=== PATIENT | female | born 1945 | race Caucasian/White ===

== ENCOUNTER → 2017-02-18 | Day surgery (SDC) | payer OTHER ==
[~2017-02-18] MED LIST: ALBUTEROL17 GM INH; ALLEGRA-D1 TAB.SR1 PO; ALLEGRA-D1 TAB.SR3 PO; ALLERGY SHOTS; AMBIEN PO; AMBIEN10 MG PO; ANTIVERT12.5 MG PO; ASPIRIN81 M1 PO; BACLOFEN10 MG PO; BACTRIM DS TABL1 TA1 PO; BACTROBAN22 GM TP; CELEBREX; DYMISTA NASAL S23 GM NS; EFFEXOR75 M1 PO; EFFEXOR75 M3 PO; EXCEDRIN EXTRA1 EAC1 PO; EXCEDRIN MIGRAI1 TA1 PO; KEPPRA250 MG PO; KEPPRA500 M2 PO; KEPPRA500 MG PO; LAMICTAL PO; LAMICTAL150 MG PO; LEVOTHYROXINE88 MCG PO; LINZESS290 MCG PO; METHOCARBAMOL500 MG PO; MIRALAX17 G1 PO; MIRALAX255 GM PO; MOBIC15 MG PO; MONTELUKAST SOD10 MG PO; MUCAPHED TABLE1 EACH PO; MUCINEX DM1 TAB.SR . PO; MULTI VITAMIN1 EACH PO; MYCOLOG II CREA15 GM TOP; NASONEX17 GM; NEURONTIN300 MG PO; NITROFURANTOIN100 M3 PO; NORCO 10/325 TA1 TAB; ONDANSETRON ODT4 MG PO; OXYCODONE-ACET1 EAC1 PO; PEPTO BISMOL; PEPTO-BISMOL262 M1 PO; PERCOCET10 PO; PRILOSEC PO; PROAIR HFA8.5 GM IN; PYRIDIUM100 MG PO; ROBAXIN PO; SOMA250 MG PO; SYMBICORT 16010.2 GM IN; SYMBICORT 16010.2 GM INH; SYNTHROID; SYNTHROID PO; SYNTHROID88 MCG PO; TOPAMAX50 MG PO; VESICARE; VITAMIN D1000 UNI1 PO; VOLTAREN50 MG PO; XENICAL120 MG PO; ZOLOFT; ZOLPIDEM TARTRAT5 M1 PO; [UNRECOGNIZED DRUG - OTHER] PO
--- NOTE | ~2017-02-18 | OR ---
Unit #: [id number] #: [id number] Patient: YVROSE LIANG [id number] [address] [address] [id number] O MR#: [id number] NAME: YVROSE LIANG. ROOM: Date of Procedure: Admission Date: 02/18/2017 Surgeon: Flavio Ribera M.D. : 1945 Attending Physician: Flavio Ribera M.D. Primary Care Physician: Frankie Coleman PROCEDURE OPERATIVE NOTE PREOPERATIVE DIAGNOSIS Back pain, radiculopathy, degenerative disc disease, lumbar spinal stenosis. POSTOPERATIVE DIAGNOSIS Back pain, radiculopathy, degenerative disc disease, lumbar spinal stenosis PROCEDURE PERFORMED Lumbar epidural steroid injection with fluoroscopic guidance for needle localization. HISTORY This is a 71-year-old female with the previously mentioned diagnosis. Pathology was most severe at the L4-5 level. She was treated with p.r.n. epidural steroid injections, getting three to five months of improvement generally. She is a poor surgical candidate. PROCEDURE The patient was placed in a seated position. Standard monitors were applied. A sterile prep and drape of the lumbar area was performed. The skin then at the right of the midline at the L4-5 level was localized with 1% lidocaine. An 18-gauge HexAirbottead needle was then advanced via loss of resistance technique and fluoroscopic guidance in toward the epidural space. After confirming proper needle positioning with fluoroscopy and radiographic contrast, 80 mg of Depo-Medrol and 4 mL of preservative free normal saline were deposited. The patient tolerated the procedure otherwise well and was discharged to the recovery room in stable condition. Dictated by... Milan Drummond/lou TD: 02/18/2017 12:40 JOB #: [id number] Unit #: [id number] #: [id number] Patient: YVROSE LIANG PROCEDURE OPERATIVE NOTE Page 1 of 1 X Flavio Ribera MD X PROCEDURE OPERATIVE NOTE
== END | disposition home or self-care (01) ==
LOC: CCSC 11:26
DX: M51.16 Intervertebral disc disorders with radiculopathy, lumbar region (principal); M48.06 Spinal stenosis, lumbar region; J44.9 Chronic obstructive pulmonary disease, unspecified; K21.9 Gastro-esophageal reflux disease without esophagitis
CPT/HCPCS: J1040; J2250

== ENCOUNTER → 2017-05-01 | Day surgery (SDC) | payer OTHER ==
--- NOTE | ~2017-05-01 | OR ---
Unit #: [id number] #: [id number] Patient: YVROSE LIANG [id number] [address] [address] [id number] O MR#: [id number] NAME: YVROSE LIANG. ROOM: Date of Procedure: 05/01/2017 Admission Date: 05/01/2017 Surgeon: Flavio Ribera M.D. : 1945 Attending Physician: Flavio Ribera M.D. Referring Physician: Flavio Ribera M.D. Primary Care Physician: Frankie Coleman OPERATIVE REPORT PREOPERATIVE DIAGNOSES Back pain, radiculopathy, degenerative disk disease, spinal stenosis. POSTOPERATIVE DIAGNOSES Back pain, radiculopathy, degenerative disk disease, spinal stenosis. PROCEDURE PERFORMED Lumbar epidural steroid injection with fluoroscopic guidance for needle localization. INDICATIONS FOR PROCEDURE The patient is a 71-year-old female with return of back and bilateral lower extremity pain due to multilevel multifactorial severe degenerative disk and spine disease. She is a nonsurgical candidate. Medications helped somewhat. Epidural steroids to help settle the pain and allow to walk and function. DESCRIPTION OF PROCEDURE The patient was placed in a seated position. Standard monitors were applied. Sterile prep and drape of the lumbar area was performed. The skin then to the right of midline at the L4-L5 level was localized with 1% lidocaine. An 18-gauge Hustead needle was then advanced via loss of resistance technique and fluoroscopic guidance in toward the epidural space. The patient did not complain of pain or paresthesia during needle advancement. After confirming proper positioning with fluoroscopy and radiographic contrast, 80 mg of Depo-Medrol and 4 mL of preservative-free normal saline were deposited. The patient tolerated the procedure otherwise well and was discharged to the recovery room in stable condition. Dictated by... Milan Drummond/vanda TD: 05/01/2017 18:23 JOB #: [id number] Unit #: [id number] #: [id number] Patient: YVROSE LIANG OPERATIVE REPORT Page 1 of 1 X Flavio Ribera MD X PROCEDURE OPERATIVE NOTE
== END | disposition home or self-care (01) ==
LOC: CCSC 08:45
DX: M51.16 Intervertebral disc disorders with radiculopathy, lumbar region (principal); M48.06 Spinal stenosis, lumbar region; K21.9 Gastro-esophageal reflux disease without esophagitis; J44.9 Chronic obstructive pulmonary disease, unspecified
CPT/HCPCS: J1040; J2250